=== PATIENT | female | born 1955 | race Caucasian/White ===

== ENCOUNTER → 2019-11-18 11:22 | Outpatient (BNVA) | payer MEDICARE, BC, SELFPAY | PROVIDERS: PCP Pediatrics; Visit Provider Urology | DX: Z76.89 Persons encountering health services in other specified circumstances (principal) | CPT/HCPCS: 99212 ==

== ENCOUNTER 2020-06-20 13:36 | Outpatient (REF) | payer MEDICARE, BC, SELFPAY ==
[2020-06-20 14:19] LABS: Glucose Urine UA NEG (NEG); Leukocyte Esterase Urine NEG (NEG); Nitrite Urine NEG (NEG); Urine Blood 2+ (NEG); Urine Ketones 5 MG/DL (NEG); Urine Protein NEG (NEG-TRACE)
[2020-06-20 14:21] LABS: Appearance Urine CLEAR; Color Urine YELLOW
[2020-06-20 14:37] LABS: Bacteria Urine TRACE /LPF; Mucus Urine TRACE /LPF; Squamous Epithelial Cell Urine 2+ /LPF
== END 2020-06-20 13:37 | disposition home or self-care (01) ==
LOC: HO.LAB 13:36
PROVIDERS: PCP Internal Medicine; Visit Provider Urology
DX: N39.0 Urinary tract infection, site not specified (principal)
CPT/HCPCS: 81001; 87086

== ENCOUNTER → 2020-12-07 10:30 | Outpatient (BNVA) | payer MEDICARE, BC, SELFPAY | PROVIDERS: PCP Internal Medicine; Visit Provider Urology | DX: N95.2 Postmenopausal atrophic vaginitis (principal); N39.0 Urinary tract infection, site not specified; N32.81 Overactive bladder | CPT/HCPCS: 51798; 99212 ==

== ENCOUNTER → 2022-07-09 09:00 | Outpatient (BNVA) | payer MEDICARE, BC, SELFPAY | PROVIDERS: PCP Internal Medicine; Visit Provider Urology | DX: N32.81 Overactive bladder (principal); N39.0 Urinary tract infection, site not specified; N95.2 Postmenopausal atrophic vaginitis | CPT/HCPCS: 51798; 99212 ==

== ENCOUNTER 2022-07-16 14:37 | Outpatient (REF) | payer MEDICARE, BC, SELFPAY ==
[2022-07-16 17:37] LABS: Appearance Urine Cloudy; Color Urine Yellow; Glucose Urine UA Negative (Negative); Leukocyte Esterase Urine Moderate (2+) (Negative); Nitrite Urine Negative (Negative); PH 5.5 (5.0-9.0); UMIC TRIGGER UA YES; Urine Blood Small (1+) (Negative); Urine Ketones Negative (Negative); Urine Protein 30 (1+) mg/dL (Neg-Trace)
[2022-07-16 17:42] LABS: Bacteria Urine None Seen (None Seen); Hyaline Casts Urine 0-2 /LPF (0-2); RBC Urine >20 /HPF (0-2); Squamous Epithelial Cell Urine 0-2 /HPF (0-2); WBC Urine >50 /HPF (0-5)
== END 2022-07-16 14:38 | disposition home or self-care (01) ==
LOC: HO.LAB 14:37
PROVIDERS: PCP Internal Medicine; Visit Provider Urology
DX: N39.0 Urinary tract infection, site not specified (principal)
CPT/HCPCS: 81001; 87086

== ENCOUNTER 2023-01-08 08:32 | Outpatient (AMB) | payer MEDICARE, BC, SELFPAY ==
--- NOTE | 2023-01-08 08:32 | A.OFFVIS_ITS ---
Intake Intake Visit Reasons: 6m follow up Intake Note: Patient is present for 6 month follow-up Urology Med: Estradiol, ( Patient states she has not been on Solifenacin in a while) Antibiotic Allergy: Sulfa Blood Thinner: Aspirin PVR: 0ml Certified Nurse Midwife Required: No Accompanied by: Self / Same As Patient Allergies Sulfa (Sulfonamide Antibiotics) Allergy (Unknown, Verified 01/08/23 08:35) Unknown Medication List - Last Reconciled 01/08/23 by Haider Diamond MD amantadine HCl 100 mg PO BID aspirin (Adult Low Dose Aspirin) 81 mg PO DAILY atenolol 25 mg PO DAILY budesonide ER 3 mg PO DAILY diclofenac sodium 75 mg PO BID estradiol 0.01%(0.1mg/gram) pea sized amount periurethral 2 times a week; estradiol 0.01%(0.1mg/gram) pea-sized to urethra 2 times a week; 30 days fosinopril-hydrochlorothiazide 20-12.5 mg 1 tab PO DAILY levofloxacin 500 mg PO DAILY 5 days simvastatin 40 mg PO BEDTIME sod picosulf-mag ox-citric ac 10 mg-3.5 gram- 12 gram/160 mL 5 mL PO BID solifenacin 10 mg PO DAILY 90 days terazosin 1 mg PO BEDTIME 30 days HPI HPI Comments History of Present Illness Details Ms Barker is a very pleasant female. She is a patient of Dr Villavicencio. She is seen for the following urologic conditions. - recurring UTI - urinary urgency Not using topical estradiol as frequently as she should Also with nocturia x4 Trial terazosin Discussed variable bowel habits Also with the tingling bilateral in feet suggestive of spinal stenosis. Recommend wool socks. She would like renal function checked issue any has 1 kidney Two month follow-up Trial terazosin, renal ultrasound, baseline labs Urinary Tract Infection: urine negative today They present for recurrent UTI's - 4 in past 6 months (2015) - When she uses the Estrace cream the frequency declines.. The first infection began 2015. Symptoms have included dyuria No urgency Yes frequency Yes Severity of the symptom(s) that is moderate. Therapy has included symptomatic use of antibiotics 01/27 suppression with cipro 250mg. Prior cultures have shown E. coli ampicillin resistant 10/26. Recent testing included an ultrasound 11/25 , no abnormality. Relevant medical history diabetes No constipation Yes Irritable bowel and has improved been on Weight Watchers diet incomplete bladder emptying No renal stones No genitourinary surgery No association of infections with intercourse No history of vesicoureteral reflux No Therapeutic plan will include topical estrogen - encouraged use of probiotics PFSH Medical History Diverticulitis HTN (hypertension) Irritable bowel Surgical History History of left knee replacement History of colonoscopy Review of Systems Const Denies chills and Denies fever(s) Card Reports no additional complaints and Denies syncope Resp Denies cough GI Denies abdominal pain and Denies heartburn Reports as per HPI and Denies change in libido Neuro Denies syncope Psych Denies change in libido Endo Denies change in libido Physical Exam Const General: cooperative, healthy appearing, comfortable and no acute distress Orientation/consciousness: patient oriented x3 HEENT Face and sinus: Yes normal facial exam Mouth: moist mucous membranes Neck Neck: Yes normal visual inspection, Yes full ROM and Yes trachea midline Chest Chest palpation & inspection: normal inspection of the chest Resp Effort & Inspection: normal respiratory effort, able to speak in complete sentences and no respiratory distress GI Inspection: Yes normal to inspection Back/Spine/Pelvis Cervical Spine: normal cervical lordosis Thoracic/Lumbar Spine: thoracic and lumbar spine normal to inspection Skin General skin exam: no rashes or lesions noted Neuro General: patient oriented x3, gait normal, tone normal and moves all extremities Extrem General: Yes normal to inspection and Yes capillary refill normal Assessment & Plan Assessment & Plan (1) Recurrent UTI: Code(s): N39.0 - Urinary tract infection, site not specified (2) Overactive bladder: Code(s): N32.81 - Overactive bladder Plan Two month follow-up labs, imaging, telephone Orders: Orders Urine Culture Today N39.0 - Urinary tract infection, site not specified Blood Urea Nitrogen Today N39.0 - Urinary tract infection, site not specified, R39.15 - Urgency of urination US renal BI Today N20.0 - Calculus of kidney, N39.0 - Urinary tract infection, site not specified Creatinine Today N39.0 - Urinary tract infection, site not specified, R39.15 - Urgency of urination Medications: New terazosin 1 mg PO BEDTIME 30 caps 1RF 30 days N39.0 - Urinary tract infection, site not specified, R39.12 - Poor urinary stream Patient Instructions: Imaging studies, laboratory and physical exam results were discussed and reviewed in detail. No major barriers to patient understanding were identified. An opportunity to ask questions regarding the treatment plan was provided. All questions were answered. The patient expressed understanding and agreement with the above treatment plan. The patient is aware they should contact our office by phone for worsening of their current condition or the appearance of new urologic symptoms. Compliance is encouraged with any medications and followup testing that is ordered. It is a privilege to participate in the urologic care of your patient. If you have any questions or concerns regarding treatment for the above conditions, or other urologic issues, please do not hesitate to contact me. The office telephone contact is [phone]. This note is constructed using voice recognition software. While every effort has been made to ensure accuracy hop separator errors may have been included. Yours sincerely, Dr Haider Diamond MD, RODRIGUEZ [facility] - Urology Providers of Expert, Compassionate Care for the Genitourinary System Coding Level of Care Code Est Pt Level 4 (64804) Diagnoses Recurrent UTI N39.0 Overactive bladder N32.81
== END 2023-01-08 08:56 | disposition home or self-care (01) ==
LOC: HO.HUSH 08:32
PROVIDERS: PCP Internal Medicine; Visit Provider Urology
DX: N39.0 Urinary tract infection, site not specified (principal); N32.81 Overactive bladder
CPT/HCPCS: 99214

== ENCOUNTER 2023-01-08 08:32 | Outpatient (REF) | payer MEDICARE, BC, SELFPAY | END 2023-01-08 08:33 | disposition home or self-care (01) | LOC: HO.LAB 08:32 | PROVIDERS: PCP Internal Medicine; Visit Provider Urology | DX: N39.0 Urinary tract infection, site not specified (principal); N32.81 Overactive bladder | CPT/HCPCS: 36415; 82565; 84520; 87086; 99212 ==

== ENCOUNTER 2023-01-08 08:58 | Outpatient (REF) | payer MEDICARE, BC, SELFPAY ==
[2023-01-08 11:05] LABS: Blood Urea Nitrogen 12 mg/dL (9-16); Estimated Glomerular Filt Rate 56
== END 2023-01-08 08:59 | disposition home or self-care (01) ==
LOC: HO.10HDL 08:58
PROVIDERS: Visit Provider Urology
DX: Z13.89 Encounter for screening for other disorder (principal)
CPT/HCPCS: 36415; 82565; 84520

== ENCOUNTER 2023-04-04 12:14 | Outpatient (REF) | payer MEDICARE, BC, SELFPAY ==
--- NOTE | ~2023-04-04 | US_ITS ---
EXAMINATION: US RETROPERITONEAL LIMITED (RENAL ONLY) CLINICAL INFORMATION: Calculus of kidney. COMPARISON: None available. TECHNIQUE: Real-time imaging of the solitary left kidney. Limited visualization due to bowel gas. FINDINGS: RIGHT KIDNEY: Surgically absent. LEFT KIDNEY: 13.7 x 6.4 x 5.0 cm (SAG x AP x TRV). No hydronephrosis. No renal calculi. Renal cortical thickness is normal. Limited visualization. US/US renal BI IMPRESSION: No hydronephrosis. No renal calculi. Limited visualization.
== END 2023-04-04 12:15 | disposition home or self-care (01) ==
LOC: HO.US 12:14
PROVIDERS: PCP Internal Medicine; Visit Provider Urology
DX: N20.0 Calculus of kidney (principal); N39.0 Urinary tract infection, site not specified
CPT/HCPCS: 76775

== ENCOUNTER 2023-04-29 09:38 | Outpatient (AMB) | payer MEDICARE, BC, SELFPAY ==
--- NOTE | 2023-04-29 09:40 | MHC.OFFVIS ---
Intake Intake Visit Reasons: 2M US/Med Review(Terazosin)set Intake Note: Patient is Present for Telephone Follow Up Urology Med: Terazosin, Solifenacin Estradiol Antibiotic Allergy:Sulfa Blood Thinner: Aspirin Allergies Sulfa (Sulfonamide Antibiotics) Allergy (Unknown, Verified 01/08/23 08:35) Unknown HPI HPI Comments History of Present Illness Details Ms Barker is a very pleasant female. She is a patient of Dr Villavicencio. She is seen for the following urologic conditions. - recurring UTI - urinary urgency - renal cancer - right nephrectomy Telemedicine Evaluation 15 min Consultation [employer] Video attempted Follow-up Trial terazosin Minimal effect Discussed imaging and ultrasound results that show normal kidney function Discussed trial Myrbetriq for her overactive bladder Baseline nocturia x4 Had encouraged topical estradiol Creatinine 1.0 Renal ultrasound left normal no stones Discussed variable bowel habits Also with the tingling bilateral in feet suggestive of spinal stenosis. Recommend Edouard wool socks. Urinary Tract Infection: urine negative today They present for recurrent UTI's - 4 in past 6 months (2015) - When she uses the Estrace cream the frequency declines.. The first infection began 2015. Symptoms have included dyuria No urgency Yes frequency Yes Severity of the symptom(s) that is moderate. Therapy has included symptomatic use of antibiotics 01/27 suppression with cipro 250mg. Prior cultures have shown E. coli ampicillin resistant 10/26. Recent testing included an ultrasound 11/25 , no abnormality. Relevant medical history diabetes No constipation Yes Irritable bowel and has improved been on Weight Watchers diet incomplete bladder emptying No renal stones No genitourinary surgery No association of infections with intercourse No history of vesicoureteral reflux No Therapeutic plan will include topical estrogen - encouraged use of probiotics [facility] Medical History Diverticulitis HTN (hypertension) Irritable bowel Surgical History History of left knee replacement History of colonoscopy Review of Systems Const All systems reviewed & are unremarkable except as noted in HPI and below Reports no additional complaints Resp Reports no additional complaints GI Reports no additional complaints Reports as per HPI Musc Reports no additional complaints Physical Exam Telemedicine evaluation Appropriate responses Regular breathing rate and rhythm HEENT Head: Yes normal to inspection Ears: hearing grossly normal bilaterally Eyes General: appearance normal, both eyes and all related structures Neck Neck: Yes normal visual inspection Chest Chest palpation & inspection: normal inspection of the chest Resp Effort & Inspection: normal respiratory effort and able to speak in complete sentences Assessment & Plan Assessment & Plan (1) Vaginal atrophy: Code(s): N95.2 - Postmenopausal atrophic vaginitis (2) Recurrent UTI: Code(s): N39.0 - Urinary tract infection, site not specified (3) Overactive bladder: Code(s): N32.81 - Overactive bladder Plan Trial Myrbetriq Two month follow-up tele Medications: New Myrbetriq ER (mirabegron) 25 mg PO DAILY 30 days 30 tabs 1RF NS N32.81 - Overactive bladder Patient Instructions: Imaging studies, laboratory and physical exam results were discussed and reviewed in detail. No major barriers to patient understanding were identified. An opportunity to ask questions regarding the treatment plan was provided. All questions were answered. The patient expressed understanding and agreement with the above treatment plan. The patient is aware they should contact our office by phone for worsening of their current condition or the appearance of new urologic symptoms. Compliance is encouraged with any medications and followup testing that is ordered. It is a privilege to participate in the urologic care of your patient. If you have any questions or concerns regarding treatment for the above conditions, or other urologic issues, please do not hesitate to contact me. The office telephone contact is [phone]. This note is constructed using voice recognition software. While every effort has been made to ensure accuracy scientific process operator errors may have been included. Yours sincerely, Dr Haider Diamond MD, RODRIGUEZ [facility] [place] - Urology Providers of Expert, Compassionate Care for the Genitourinary System Telehealth Telehealth Location of provider rendering services: practice address Location of patient: address on file Patient Identification confirmed using: Name, : Yes Telehealth method: video Patient verbally consented to treatment: Yes Patient verbally consented to billing insurance company: Yes Patient informed of any privacy concerns related to visit: Yes Coding Level of Care Code Tele Est Pt Level 4 (47667) Diagnoses Vaginal atrophy N95.2 Recurrent UTI N39.0 Overactive bladder N32.81
== END 2023-04-29 10:05 | disposition home or self-care (01) ==
LOC: HO.HUSH 09:38
PROVIDERS: PCP Internal Medicine; Visit Provider Urology
DX: N95.2 Postmenopausal atrophic vaginitis (principal); N39.0 Urinary tract infection, site not specified; N32.81 Overactive bladder
CPT/HCPCS: 99214

== ENCOUNTER → 2023-04-29 09:38 | Outpatient (BNVA) | payer MEDICARE, BC, SELFPAY | PROVIDERS: PCP Internal Medicine; Visit Provider Urology ==

== ENCOUNTER 2023-07-01 10:04 | Outpatient (AMB) | payer MEDICARE, BC, SELFPAY ==
--- NOTE | 2023-07-01 10:05 | MHC.OFFVIS ---
Intake Visit Reasons: 2m follow up Intake Note: Patient is Present for Telephone Follow Up For med review Urology Med: Solifenacin, Myrbetriq Antibiotic Allergy:Sulfa antibiotics Blood Thinner: Aspirin Patient is requesting to be back on solifenacin, States both myrbetriq and solifenacin is giving the same response. She states she rather pay less for solfienacin than myrbetriq No longer taking Terazosin, Myrbetriq Allergies Sulfa (Sulfonamide Antibiotics) Allergy (Unknown, Verified 07/01/23 10:07) Unknown Medication List - Last Reconciled 07/01/23 by Haider Diamond MD amantadine HCl 100 mg PO BID aspirin (Adult Low Dose Aspirin) 81 mg PO DAILY atenolol 25 mg PO DAILY budesonide DR-ER 3 mg PO DAILY diclofenac sodium 75 mg PO BID estradiol 0.01%(0.1mg/gram) pea sized amount periurethral 2 times a week; estradiol 0.01%(0.1mg/gram) pea-sized to urethra 2 times a week; 30 days fosinopril-hydrochlorothiazide 20-12.5 mg 1 tab PO DAILY levofloxacin 500 mg PO DAILY 5 days simvastatin 40 mg PO BEDTIME sod picosulf-mag ox-citric ac 10 mg-3.5 gram- 12 gram/160 mL 5 mL PO BID solifenacin 10 mg PO DAILY 90 days terazosin 1 mg PO BEDTIME 30 days HPI Comments Details: Ms Barker is a very pleasant female. She is a patient of Dr Villavicencio. She is seen for the following urologic conditions. - recurring UTI - urinary urgency - renal cancer - right nephrectomy Telemedicine Evaluation 15 min Consultation [email or web address] Follow-up Trial Myrbetriq Similar impact as solifenacin Would rather remain on solifenacin as is much cheaper Discussed options for InterStim Will provide information when we see her in 6 months Baseline nocturia x4 Had encouraged topical estradiol Creatinine 1.0 Renal ultrasound left normal no stones Discussed variable bowel habits Also with the tingling bilateral in feet suggestive of spinal stenosis. Recommend Edouard wool socks. Urinary Tract Infection: urine negative today They present for recurrent UTI's - 4 in past 6 months (2015) - When she uses the Estrace cream the frequency declines.. The first infection began 2015. Symptoms have included dyuria No urgency Yes frequency Yes Severity of the symptom(s) that is moderate. Therapy has included symptomatic use of antibiotics 01/27 suppression with cipro 250mg. Prior cultures have shown E. coli ampicillin resistant 10/26. Recent testing included an ultrasound 11/25 , no abnormality. Relevant medical history diabetes No constipation Yes Irritable bowel and has improved been on Weight Watchers diet incomplete bladder emptying No renal stones No genitourinary surgery No association of infections with intercourse No history of vesicoureteral reflux No Therapeutic plan will include topical estrogen - encouraged use of probiotics PFSH Medical History Diverticulitis HTN (hypertension) Irritable bowel Surgical History History of left knee replacement History of colonoscopy Review of Systems Const All systems reviewed & are unremarkable except as noted in HPI and below Reports no additional complaints Resp Reports no additional complaints GI Reports no additional complaints Reports as per HPI Musc Reports no additional complaints Physical Exam Telemedicine evaluation Appropriate responses Regular breathing rate and rhythm HEENT Head: Yes normal to inspection Ears: hearing grossly normal bilaterally Eyes General: appearance normal, both eyes and all related structures Neck Neck: Yes normal visual inspection Chest Chest palpation & inspection: normal inspection of the chest Resp Effort & Inspection: normal respiratory effort and able to speak in complete sentences Telehealth Telehealth Location of provider rendering services: practice address Location of patient: address on file Patient Identification confirmed using: Name, : Yes Telehealth method: video Patient verbally consented to treatment: Yes Patient verbally consented to billing insurance company: Yes Patient informed of any privacy concerns related to visit: Yes Assessment & Plan Assessment & Plan (1) Overactive bladder: Code(s): N32.81 - Overactive bladder Category: Medical (2) Recurrent UTI: Code(s): N39.0 - Urinary tract infection, site not specified Category: Medical Plan Solifenacin Consider InterStim with possible urodynamics Medications: Refilled solifenacin 10 mg PO DAILY 90 days 90 tabs 1RF N32.81 - Overactive bladder Discontinued Myrbetriq ER (mirabegron) Discontinued Reason: Patient Completed Course 25 mg PO DAILY 30 days 30 tabs 1RF NS N32.81 - Overactive bladder Patient Instructions: Imaging studies, laboratory and physical exam results were discussed and reviewed in detail. No major barriers to patient understanding were identified. An opportunity to ask questions regarding the treatment plan was provided. All questions were answered. The patient expressed understanding and agreement with the above treatment plan. The patient is aware they should contact our office by phone for worsening of their current condition or the appearance of new urologic symptoms. Compliance is encouraged with any medications and followup testing that is ordered. It is a privilege to participate in the urologic care of your patient. If you have any questions or concerns regarding treatment for the above conditions, or other urologic issues, please do not hesitate to contact me. The office telephone contact is [phone]. This note is constructed using voice recognition software. While every effort has been made to ensure accuracy mobile home technician errors may have been included. Yours sincerely, Dr Haider Diamond MD, RODRIGUEZ [facility] - Urology Providers of Expert, Compassionate Care for the Genitourinary System Coding Level of Care Code Tele Est Pt Level 3 (32747) Diagnoses Overactive bladder N32.81 Recurrent UTI N39.0
== END 2023-07-01 10:42 | disposition home or self-care (01) ==
LOC: HO.HUSH 10:04
PROVIDERS: PCP Internal Medicine; Visit Provider Urology
DX: N32.81 Overactive bladder (principal); N39.0 Urinary tract infection, site not specified
CPT/HCPCS: 99213

== ENCOUNTER → 2023-07-01 10:04 | Outpatient (BNVA) | payer MEDICARE, BC, SELFPAY | PROVIDERS: PCP Internal Medicine; Visit Provider Urology ==

== ENCOUNTER 2024-02-06 14:30 | Outpatient (REF) | payer MEDICARE, BC, SELFPAY ==
[2024-02-06 14:57] LABS: Appearance Urine Cloudy; Color Urine Yellow; Glucose Urine UA Negative (Negative); Leukocyte Esterase Urine Large (3+) (Negative); Nitrite Urine Negative (Negative); PH 5.5 (5.0-9.0); UMIC TRIGGER UA YES; Urine Blood Moderate (2+) (Negative); Urine Ketones Negative (Negative); Urine Protein 30 (1+) mg/dL (Neg-Trace)
[2024-02-06 15:02] LABS: Bacteria Urine None Seen (None Seen); Hyaline Casts Urine 0-2 /LPF (0-2); RBC Urine >20 /HPF (0-2); Squamous Epithelial Cell Urine 0-2 /HPF (0-2); WBC Urine >50 /HPF (0-5)
== END 2024-02-06 14:31 | disposition home or self-care (01) ==
LOC: HO.LAB 14:30
PROVIDERS: PCP Internal Medicine; Visit Provider Urology
DX: N39.0 Urinary tract infection, site not specified (principal); B96.20 Unspecified Escherichia coli [E. coli] as the cause of diseases classified elsewhere
CPT/HCPCS: 81001; 87086; 87088; 87186

== ENCOUNTER 2024-02-19 08:52 | Outpatient (REF) | payer MEDICARE, BC, SELFPAY ==
[2024-02-19 10:05] LABS: Appearance Urine Cloudy; Color Urine Yellow; Glucose Urine UA Negative (Negative); Leukocyte Esterase Urine Trace (Negative); Nitrite Urine Negative (Negative); Specific Gravity - Urine >= 1.030 (1.005-1.025); UMIC TRIGGER UA YES; Urine Blood Large (3+) (Negative); Urine Ketones Trace mg/dL (Negative); Urine Protein 100 (2+) mg/dL (Neg-Trace)
[2024-02-19 10:18] LABS: Bacteria Urine 2+ (None Seen)
== END 2024-02-19 08:53 | disposition home or self-care (01) ==
LOC: HO.LAB 08:52
PROVIDERS: PCP Internal Medicine; Visit Provider Urology
DX: N39.0 Urinary tract infection, site not specified (principal)
CPT/HCPCS: 81001; 87086

== ENCOUNTER 2024-03-04 10:10 | Outpatient (AMB) | payer MEDICARE, BC, SELFPAY ==
--- NOTE | 2024-03-04 10:16 | MHC.OFFVIS ---
Intake Visit Reasons: 6M PVR/Disciss Urodynamic/interstim Intake Note: Patient is present for 6M PVR/DISCUSS URODYNAMICS/INTERSTIM Urology Medication:TERAZOSIN,MACROBID,SOLIFENACIN,EASRADIOL Antibiotic Allergy:SULFA Blood Thinner:ASPIRIN TODAY'S PVR: 0ML'S Legal Coordinator Required: No Allergies Sulfa (Sulfonamide Antibiotics) Allergy (Unknown, Verified 03/04/24 10:17) Unknown HPI Comments Details: Ms Barker is a very pleasant female. She is a patient of Dr Villavicencio. She is seen for the following urologic conditions. - recurring UTI - urinary urgency - renal cancer - right nephrectomy Continues with solifenacin Provided information regarding bladder stimulation Baseline nocturia x4 Had encouraged topical estradiol Creatinine 1.0 Renal ultrasound left normal no stones Discussed variable bowel habits Also with the tingling bilateral in feet suggestive of spinal stenosis. Recommend Edouard wool socks. Urinary Tract Infection: urine negative today They present for recurrent UTI's - 4 in past 6 months (2015) - When she uses the Estrace cream the frequency declines.. The first infection began 2015. Symptoms have included dyuria No urgency Yes frequency Yes Severity of the symptom(s) that is moderate. Therapy has included symptomatic use of antibiotics 01/27 suppression with cipro 250mg. Prior cultures have shown E. coli ampicillin resistant 10/26. Recent testing included an ultrasound 11/25 , no abnormality. Relevant medical history diabetes No constipation Yes Irritable bowel and has improved been on Weight Watchers diet incomplete bladder emptying No renal stones No genitourinary surgery No association of infections with intercourse No history of vesicoureteral reflux No Therapeutic plan will include topical estrogen - encouraged use of probiotics PFSH Medical History Diverticulitis HTN (hypertension) Irritable bowel Surgical History History of left knee replacement History of colonoscopy Office Procedures Post Void Residual Post Residual Void Post Void Residual (PVR): 0 [id number] Void Residual by ultrasound Results AMB Urinalysis, Automated UA Leukoctes 70 Abdelrahman/uL Last Edit by JOHN Seymour on 03/04/24 10:41 UA Nitrite Negative Last Edit by JOHN Seymour on 03/04/24 10:41 UA Urobilinogen 0.2 mg/dL [facility] on 03/04/24 10:41 UA Protein 15 mg/dL Last Edit [facility] on 03/04/[facility] 10:41 UA pH 6.0 Last Edit by Vielka Mi, [facility] on 03/04/24 10:41 UA Blood 200 Obed/uL Last Edit by Vielka Mi [facility] on 03/04/24 10:41 UA Specific Kyle 1.015 Last Edit by Vielka Mi [facility] on 03/04/24 10:41 UA Ketone Negative Last Edit by Vielka Mi [facility] on 03/04/24 10:41 UA Bilirubin 0 mg/dL Last Edit by Vielka Mi [facility] on 03/04/24 10:41 UA Glucose 0 mg/dL Last Edit by Vielka Mi [facility] on 03/04/24 10:41 Assessment & Plan Assessment & Plan Orders: Orders AMB Urinalysis Automated Today Z13.9 - Encounter for screening, unspecified Coding CPT Codes Post Residual Void - PVR CPT Code: 06174-[id number] Void Residual by ultrasound ([id number])
== END 2024-03-04 11:14 | disposition home or self-care (01) ==
PROVIDERS: PCP Internal Medicine; Visit Provider Urology
DX: Z13.9 Encounter for screening, unspecified (principal)

== ENCOUNTER → 2024-03-04 10:10 | Outpatient (BNVA) | payer MEDICARE, BC, SELFPAY | PROVIDERS: PCP Internal Medicine; Visit Provider Urology | DX: N39.0 Urinary tract infection, site not specified (principal); N32.81 Overactive bladder | CPT/HCPCS: 51798; 81003; 99212 ==

== ENCOUNTER 2024-03-12 13:44 | Outpatient (REF) | payer MEDICARE, BC, SELFPAY ==
--- OUTSIDE RECORDS SUMMARY | 2024-03-12 13:47 | XMS_ITS | Clinical Summary ---
[facility] Organization [facility] it Address [address] [place] [address] Care Team Providers Care Payroll Associate Name Role Phone Papo Villavicencio MD Primary Care Provider Medications Medication Sig Dispensed Refills Start Date End Date Status hydrocortisone (ANUSOL-HC) 2.5 % rectal creamIndications:Hem orrhoids, unspecified hemorrhoid type Insert into the rectum 2 (two) times a day if needed for hemorrhoids (for rectal discomfort) for up to 14 days. Apply externally to rectum as needed for rectal discomfort 30 g 3 01/05/2024 Active Encounters Date Type Department Care Team Description 01/05/2024 Telephone Gastroenterology - [address] [place] [address] Iain Boone MD Hemorrhoids (Pt states having a difficult time w/hemorrhoids, Preparation H not working, pt would like to know if something can be called in for this) from Last 3 Months Surgical History Surgery Date Site/Laterality Comments VENTRAL HERNIA REPAIR 04/12/2005, 07/20/13 PROCEDURE: HISTORICAL VTRL WALL HERNIA RE; COMMENT: multiple OVARIAN CYST REMOVAL PROCEDURE: [place] OVARIAN CYSTECTOMY UNI/BI OTHER SURGICAL HISTORY PROCEDURE: AR MYOMECTOMY 1-4 MYOMAS 250 GM/< VAGINAL APPR NEPHRECTOMY Right PROCEDURE: HISTORICAL NEPHRECTOMY TOTAL KNEE ARTHROPLASTY Bilateral PROCEDURE: HISTORICAL TOTAL KNEE REPLACE COLONOSCOPY PROCEDURE: HISTORICAL COLONOSCOPY ABDOMINAL SURGERY 09/15/2017 PROCEDURE: [place] UNLISTED PROCEDURE ABDOMEN PERITONEUM & OMENTUM; COMMENT: exploratory laparotomy, repair of recurrent low midline incisional herniawith Prolene mesh, partial removal of old mesh Medical History Medical History Date Comments Allergic rhinitis 08/26/2017 DX:Allergic rh initis DJD (degenerative joint dise ase), multiple sites 08/26/2017 DX:DJD (degenerative joint d isease), multiple sites H/O unilateral nephrectomy 08/26/2017 DX:H/ O unilateral nephrectomy; COMMENT: Trauma related, Right nephrectomy Diverticulitis 08/26/2017 DX:Diverticuliti s History of total bilateral k nee replacement 08/26/2017 DX:History of total bilatera l knee replacement Hyperlipidemia 08/26/2017 DX:Hyperlipidemi a Hypertension 08/26/2017 DX:Hypertension Irritable bowel syndrome (IBS) 08/26/2017 D X:Irritable bowel syndrome (IBS) Morbid obesity with BMI of 4 0.0-44.9, adult (CMS/HCC) 08/26/2017 DX:Morbid obesity with BMI o f 40.0-44.9, adult ([facility]) Psoriasis 08/26/2017 DX:Psoriasis Recurrent incisional hernia 07/15/2017 DX:R ecurrent incisional hernia Recurrent UTI (urinary tract infection) 07/15/2017 DX:Recurrent UTI (urinary tract infection) 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 Urgency of urination 08/26/2017 DX:Urgency of urination Family History Medical History Relation Name Comments Leukemia Father Dementia Mother Relation Name Status Comments Father Mother Social History Tobacco Use Types Packs/Day Years Used Date Smoking Tobacco: Never Smokeless Tobacco: Never Alcohol Use Standard Drinks/Week Comments No 0 (1 standard drink = 0.6 oz pur e alcohol) Sex and Gender Information Value Date Recorded Sex Assigned at Not on file Gender Identity Not on file Sexual Orientation Not on file Obstetrics History Plan of Treatment Health Maintenance Due Date Last Done Comments Breast Cancer Screening 1955 COVID-19 Vaccine (#1) 07/31/1959 DTaP,Tdap,and Td Vaccines (1 - Tdap) 1973 Zoster Vaccines (1 of 2) 2004 Pneumococcal Vaccine: 65+ Ye ars (1 of 1 - PCV) 07/31/2019 Cholesterol Screening (Lipid Panel) 01/09/2022 Colorectal Cancer Screening: Colonoscopy 01/09/2022 Depression Screening 01/09/2022 Falls Risk Assessment 01/09/2022 Hepatitis C Screening 01/09/2022 Osteoporosis Screening (Bone Density Screening) 01/09/2022 Social Influencers of Health Screening 01/09/2022 Hypertension/CHF/CAD Annual BMP Blood Test 01/26/2022 Influenza Vaccine (#1) 2023 RSV Immunization Patients 60 + Years Old (1 - 1-dose 75+ series) 2029 HIB Vaccines Aged Out No longer eligi ble based on patient's age to complete this topic HPV Vaccines Aged Out No longer eligi ble based on patient's age to complete this topic Hepatitis A Vaccines Aged Out No long er eligible based on patient's age to complete this topic Hepatitis B Vaccines Aged Out No long er eligible based on patient's age to complete this topic IPV Vaccines Aged Out No longer eligi ble based on patient's age to complete this topic MMR Vaccines Aged Out No longer eligi ble based on patient's age to complete this topic Meningococcal ACWY Vaccine Aged Out N o longer eligible based on patient's age to complete this topic RSV Immunization Patients Un deshaun 20 months Aged Out No longer eligible b ased on patient's age to complete this topic Varicella Vaccines Aged Out No longer eligible based on patient's age to complete this topic Care Teams Payroll Associate Relationship Specialty Start Date End Date Papo Villavicencio MD [address] [facility] [address] [place], [place] PCP - General Internal Medicine 02/10/11
[2024-03-12 14:54] LABS: Appearance Urine Turbid; Color Urine Dark Yellow; Glucose Urine UA Negative (Negative); Leukocyte Esterase Urine Moderate (2+) (Negative); Nitrite Urine Negative (Negative); Specific Gravity - Urine 1.025 (1.005-1.025); UMIC TRIGGER UA YES; Urine Blood Large (3+) (Negative); Urine Ketones Trace mg/dL (Negative); Urine Protein 300 (3+) mg/dL (Neg-Trace)
[2024-03-12 15:25] LABS: Bacteria Urine 4+ (None Seen); RBC Urine >20 /HPF (0-2); WBC Urine >50 /HPF (0-5)
== END 2024-03-12 13:45 | disposition home or self-care (01) ==
LOC: HO.LAB 13:44
PROVIDERS: PCP Internal Medicine; Visit Provider Urology
DX: N39.0 Urinary tract infection, site not specified (principal)
CPT/HCPCS: 81001; 87086

== ENCOUNTER 2024-04-12 14:09 | Outpatient (REF) | payer MEDICARE, BC, SELFPAY ==
[2024-04-12 14:35] LABS: Appearance Urine Cloudy; Color Urine Yellow; Glucose Urine UA Negative (Negative); Leukocyte Esterase Urine Large (3+) (Negative); Nitrite Urine Negative (Negative); Specific Gravity - Urine 1.015 (1.005-1.025); UMIC TRIGGER UA YES; Urine Blood Small (1+) (Negative); Urine Ketones Negative (Negative); Urine Protein Negative (Neg-Trace)
[2024-04-12 14:39] LABS: Bacteria Urine 1+ (None Seen); Hyaline Casts Urine 0-2 /LPF (0-2); WBC Urine >50 /HPF (0-5)
--- OUTSIDE RECORDS SUMMARY | 2024-04-12 16:58 | XMS_ITS | Clinical Summary ---
[facility] [address] [place] [address] Care Team Providers Care Hide Selector Name Role Phone Papo Villavicencio MD Primary Care Provider [phone] Medications hydrocortisone (ANUSOL-HC) 2.5 % rectal creamIndications :Hemorrhoids, unspecified hemorrhoid type Insert into the rectum 2 (two) times a day if needed for hemorrhoids (for rectal discomfort) for up to 14 days. Apply externally to rectum as needed for rectal discomfort 30 g [address] (Entocort EC) 3 mg 24 hr capsuleIndicatio ns:Microscopic colitis, unspecified microscopic colitis type Take 3 capsules (9 mg total) by mouth 1 (one) time each day in the morning. 270 each 5 07/06/19 Active Encounters Date Type Department Care Team Description 04/06/2024 Telephone Gastroenterology - [address] [facility] [address] [place] [phone] Iain Boone MD Advice Only from Last 3 Months Surgical History Surgery Date Site/Laterality Comments VENTRAL HERNIA REPAIR 04/12/2005, 07/20/13 PROCEDURE: HISTORICAL VTRL WALL HERNIA RE; COMMENT: multiple OVARIAN CYST REMOVAL PROCEDURE: [place] OVARIAN CYSTECTOMY UNI/BI OTHER SURGICAL HISTORY PROCEDURE: [place] MYOMECTOMY 1-4 MYOMAS 250 GM/< VAGINAL APPR NEPHRECTOMY Right PROCEDURE: HISTORICAL NEPHRECTOMY TOTAL KNEE ARTHROPLASTY Bilateral PROCEDURE: HISTORICAL TOTAL KNEE REPLACE COLONOSCOPY PROCEDURE: HISTORICAL COLONOSCOPY ABDOMINAL SURGERY 09/15/2017 PROCEDURE: [place] UNLISTED PROCEDURE ABDOMEN PERITONEUM & OMENTUM; COMMENT: [...] obesity with BMI of 4 0.0-44.9, adult ([facility]/HCC) 08/26/2017 DX:Morbid obesity with BMI o f 40.0-44.9, adult ([facility]) Psoriasis 08/26/2017 DX:Psoriasis Recurrent incisional [...] drink = 0.6 oz pur e alcohol) Comments Unknown Sex and Gender Information Value Date Recorded Sex Assigned at Not on file Legal Sex Female 4:11 PM EST Gender Identity Not on file Sexual Orientation Not on file Obstetrics History Plan of Treatment Health Maintenance Due Date Last Done Comments Breast Cancer Screening 1954 COVID-19 Vaccine (#1) 07/31/1959 DTaP,Tdap,and Td Vaccines (1 - Tdap) 1973 Pneumococcal Vaccine: 50+ Ye ars (1 of 1 - PCV) 2004 Zoster Vaccines (1 of 2) 2004 Cholesterol Screening (Lipid Panel) 01/09/2022 Colorectal Cancer [...] patient's age to complete this topic Meningococcal B Vacine Aged Out No lo nger eligible based on patient's age to complete this topic RSV Immunization Patients Un deshanu 20 months Aged Out No longer eligible b ased on patient's age to complete this topic Varicella Vaccines Aged Out No longer eligible based on patient's age to complete this topic Care Teams Hide Selector Relationship Specialty Start Date End Date Papo Villavicencio MD [address] [facility] [address] [place], [place] PCP - General Internal Medicine 02/10/11
--- OUTSIDE RECORDS SUMMARY | 2024-04-12 16:58 | XMS_ITS | Encounter Summary ---
Author Organization [facility] Address [address] [place] [address] Care Team Providers Care Shell Coremaker Name Role Phone Papo Villavicencio MD Primary Care Provider Reason for Visit * Reason Onset Date Comments Advice Only 04/06/2024 Encounter Details Date Type Department Care Team (Late st Contact Info) Description 04/06/2024 Telephone Gastroenterology - [address] [facility] [address] [facility] [address] [place] [phone] Iain Boone MD [address] [facility] [facility] [address] [place] [address] Advice Only Social History Tobacco Use Types Packs/Day Years Used Date Smoking Tobacco: Never Smokeless Tobacco: Never Alcohol Use Standard Drinks/Week Comments No 0 (1 standard drink = 0.6 oz pur e alcohol) Comments Unknown Sex and Gender Information Value Date Recorded Sex Assigned at Not on file Legal Sex Female 4:11 PM EST Gender Identity Not on file Sexual Orientation Not on file documented as of this encounter Progress Notes * Marzena Zamora [place] - 04/06/2024 3:43 PM EST RX SENT TO PHARM FOR BUDESONIDE 3 MG 3 PO QD FOR 90 DAYS NO REFILLS -PT AWARE * Darshana Bello - 04/06/2024 3:08 PM EST Pt called about her medication DUDESONIDE. Usually gets 3 mo supply and only got one month. Insurance sent letter to pt for us to call pharmacy to confirm medication. Please advise. Takes 3 p.o. q.d. documented in this encounter Plan of Treatment Not on file documented as of this encounter Visit Diagnoses Not on filedocumented in this encounter Care Teams Shell Coremaker Relationship Specialty Start Date End Date Papo Villavicencio MD [address] [facility] [address] [place], [place] PCP - General Internal Medicine 02/10/11 documented as of this encounter
== END 2024-04-12 14:10 | disposition home or self-care (01) ==
LOC: HO.LAB 14:09
PROVIDERS: PCP Internal Medicine; Visit Provider Urology
DX: N39.0 Urinary tract infection, site not specified (principal); N32.81 Overactive bladder
CPT/HCPCS: 81001; 87086; 87088; 87186

== ENCOUNTER 2024-06-16 08:34 | Outpatient (REF) | payer MEDICARE, BC, SELFPAY ==
--- OUTSIDE RECORDS SUMMARY | 2024-06-16 08:52 | XMS_ITS | Clinical Summary ---
[facility] Address [address] [place] [address] Care Team Providers Care Safety Clothing And Equipment Developer Name Role Phone Papo Villavicencio MD Primary Care Provider Medications hydrocortisone (ANUSOL-HC) 2.5 % rectal creamIndications [...] 04/06/2024 Telephone Gastroenterology - [address] [facility] [address] [place] [phone] Iain Boone MD Advice Only from Last 3 Months Surgical History Surgery Date Site/Laterality Comments VENTRAL HERNIA REPAIR 04/12/2005, 07/20/13 PROCEDURE: HISTORICAL VTRL WALL HERNIA RE; COMMENT: multiple OVARIAN CYST REMOVAL PROCEDURE: [place] OVARIAN CYSTECTOMY UNI/BI OTHER SURGICAL HISTORY PROCEDURE: ND MYOMECTOMY 1-4 MYOMAS 250 GM/< VAGINAL APPR NEPHRECTOMY Right PROCEDURE: HISTORICAL NEPHRECTOMY TOTAL KNEE ARTHROPLASTY Bilateral PROCEDURE: HISTORICAL TOTAL KNEE REPLACE COLONOSCOPY PROCEDURE: HISTORICAL COLONOSCOPY ABDOMINAL SURGERY 09/15/2017 PROCEDURE: [place] UNLISTED PROCEDURE ABDOMEN PERITONEUM & OMENTUM; COMMENT: [...] obesity with BMI of 4 0.0-44.9, adult (CMS/HCC V24, CMS/HCC V28) 08/26/2017 DX:Morbid obesity wit h BMI of 40.0-44.9, adult ([facility]) Psoriasis 08/26/2017 DX:Psoriasis Recurrent incisional hernia 07/15/2017 [...] Last Done Comments Breast Cancer Screening 1955 Pneumococcal Vaccine: 50+ Years (2 of 2 - PCV) 10/12/2021 10/12/2020, 06/08/2014 Cholesterol Screening (Lipid Panel) 01/09/2022 Colorectal Cancer Screening: Colonoscopy 01/09/2022 Depression Screening 01/09/2022 Falls Risk Assessment 01/09/2022 Hepatitis C Screening 01/09/2022 Osteoporosis Screening (Bone Density Screening) 01/09/2022 Social Influencers of Health Screening 01/09/2022 Hypertension/CHF/CAD Annual BMP Blood Test 01/26/2022 COVID-19 Vaccine ( season) 2023 11/28/2022, 08/27/2021, 12/08/2020, Additional history exists Influenza Vaccine (Season Ended) 2024 10/21/2022, 11/27/2021, 12/01/2020, Additional history exists DTaP,Tdap,and Td Vaccines (2 - Td or Tdap) 11/16/2030 11/16/2020 Zoster Vaccines Completed 02/12/2021, 12/01/2020 RSV Immunization Adult Patients Completed 10/21/2022 HIB Vaccines Aged Out No longer eligi [...] age to complete this topic Meningococcal B Vaccine Aged Out No l onger eligible based on patient's age to complete this topic RSV Immunization Patients Under 20 months Aged Out No longer eligible based on patient's age to complete this topic Varicella Vaccines Aged Out No longer eligible based on patient's age to complete this topic Care Teams Safety Clothing And Equipment Developer Relationship Specialty Start Date End Date Papo Villavicencio MD [address] [facility] [address] [place], [place] PCP - General Internal Medicine 02/10/11
--- OUTSIDE RECORDS SUMMARY | 2024-06-16 08:53 | XMS_ITS | Data Portability ---
Author Organization [place] - [facility], Allergy Address [address] [place] [id number] Care Team Providers Care Process Control Technician Name Role Phone NADIA ROBERTS Primary Care Provider [phone] Assessment No assessment recorded. Plan of Treatment Reminders Order Date Submit Date Provider Last Modified By Organization Details Last Modified Time Details Appointments None record ed. Lab None record ed. Referral None record ed. Procedures None record ed. Surgeries None record ed. Imaging None record ed. Medication Orders None record ed. Patient TargetsNo targets recorded. 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 She had an MRI of her head in [address] of her sinuses in 2020 without any identifiable cause for this condition. I have suggested fluticasone nasal spray 2 sprays each nostril once daily and a trial of smell retraining. She can try to smell essential oils that contain Nelly, eucalyptus, peppermint and citronella for 5 to 10 minutes 2-3 times per day for several months. Sometimes things can improve. Given the long duration of her symptoms it is unlikely she will get any recovery but orthotropic jschreibstein Not available 06/08/2024 13:38:43 Reason for Referral None Reported. Problems Name Problem SNOMED Code Status Onset Date Resolution Date Notes Provider Name and Address Organization Details Recorded Time Posterior rhinorrhe a 32617059 Active 2022 Postnasal drip; Note: Date Diagnosed : 05/10/2022 9:35 AM (R09.82) Not [facility] Bilateral tinnitus 30054262766 02 Active 2017 Tinnitus, bilateral ; Note: Date Diagnosed : 02/19/2017 10:42 AM (H93.13) Not Available [facility] 4 02:36:59 Respirato ry finding 440409032 Active 2022 Feeling of foreign body in throat; Note: Date Diagnosed : 05/10/2022 9:35 AM (R09.89) Not Available [facility] 4 02:37:10 Cardiovas cular finding 829809413 Active 2022 Feeling of foreign body in throat; Note: Date Diagnosed : 05/10/2022 9:35 AM (R09.89) Not Available [facility] 4 02:37:10 Loss of sense of smell 38849990 Active 2016 Anosmia; Note: Date Diagnosed : 07/25/2016 11:08 AM (R43.0) Not Available [facility] 4 02:37:03 Impacted cerumen in right ear 44191723639 45726 Active 2017 Impacted cerumen, right ear; Note: Date Diagnosed : 05/26/2017 2:23 PM (H61.21) Not Available [facility] 4 02:37:06 Gastroeso phageal reflux disease without esophagit is 902361278 Active 2016 Gastro-es ophageal reflux disease without esophagit is; Note: Date Diagnosed : 06/05/2016 11:46 AM (K21.9) Not Available [facility] 4 02:37:01 Impacted cerumen in left ear 77895281646 47457 Active 2016 Impacted cerumen, left ear; Note: Date Diagnosed : 06/05/2016 11:41 AM (H61.22) Not Available [facility] 4 02:37:00 Sensorine ural hearing loss of bilateral ears 568065749 Active 2017 Sensorine ural hearing loss, bilateral ; Note: Date Diagnosed : 02/19/2017 11:28 AM (H90.3) Not Available [facility] 4 02:37:04 Nasal congestio n 36029395 Active 2017 Nasal congestio n; Note: Date Diagnosed : 02/19/2017 10:42 AM (R09.81) Not Available [facility] 4 02:37:06 Bilateral temporoma ndibular joint pain 14031714067 010231 Active 2017 Arthralgi a of bilateral temporoma ndibular joint; Note: Date Diagnosed : 05/26/2017 3:38 PM (M26.623) Not Available [facility] 4 02:37:08 Impacted cerumen of bilateral ears 10967270798 82901 Active 2018 Impacted cerumen, bilateral ; Note: Date Diagnosed : 07/29/2018 10:55 AM (H61.23) Not Available [facility] 4 02:37:00 Disorder of left Eustachia n tube 83272986674 69112 Active 2017 Other specified disorders of Eustachia n tube, left ear; Note: Date Diagnosed : 05/26/2017 3:38 PM (H69.82) Not Available [facility] 4 02:37:09 Malaise 010188052 Active 2020 Other malaise; Note: Date Diagnosed : 03/08/2020 4:39 PM (R53.81) Not Available [facility] 4 02:37:02 Chronic rhinitis 32286960 Active 2023 KB PATEL MD [address] [facility],[place] [address], [place], [phone] , [place] - [facility] 4 21:48:21 Feeling of lump in throat 692198052 Active 2023 KB PATEL MD [address] [facility],[place] [address], [place], [phone] , [place] - [facility] 4 21:48:27 Sensory disorder of smell and/or taste 49557739858 03 Active 2024 KB PATEL MD [address] [facility],[place] [address], [place], [phone] , [place] - [facility] 5 13:37:27 Deviated nasal septum 784822017 Active 2024 KB PATEL MD [address] [place],[facility] [address], [place], [phone] , [facility] - [facility] 5 13:37:31 Excessive cerumen in ear canal 107334576 Active 2024 KB PATEL MD [address] [place],[facility] [address], [place], [place], [phone] , [facility] - [facility] 13:37:43 Problem Notes None recorded. Medical Equipment None Reported. Allergies Allergen ID Allergen Name Allergen Category Reaction Reaction Severity Criticality Documentation Date Start Date Code Code System Note Provider Name and Address Organization Details Recorded Time [id number] Substance with morphinan structure and opioid receptor agonist mechanism of action (substanc e) medicatio n other Not available Not available 06/24/2023 84393 9000 SNOMED React ion: unkno wn, unspe cifie d;; Not Available [facility] 4 01:08:19 Medications Name Sig Start Date Stop Date Status Note LastModified by Organization Details LastModified Time amoxicill in 500 mg capsule TAKE 1 CAPSULE BY MOUTH THREE TIMES A DAY UNTIL GONE 06/08 completed Not Available Not Available Not Available fosinopri l 20 mg-hydroc hlorothia zide 12.5 mg tablet TAKE 1 TABLET BY MOUTH EVERY DAY 06/08 completed Not Available Not Available Not Available Miralax 17 gram/dose oral powder 05/10 completed Medicati on ID: [id number] B rand Name: Miralax Send Method: E-Prescr ibed Sub s Allowed: subs OK Medic ationGen ericName : Miralax Not Available Not Available Not Available paroxetin e 10 mg tablet active Medicati on ID: [id number] B rand Name: paroxeti ne HCl Send Method: E-Prescr ibed Sub s Allowed: subs OK Medic ationGen ericName : paroxeti ne HCl Not Available Not Available Not Available tizanidin e 4 mg tablet TAKE 1 TABLET BY MOUTH THREE TIMES A DAY FOR 14 DAYS 06/08 completed Not Available Not Available Not Available atenolol 25 mg tablet TAKE 1 TABLET BY MOUTH EVERY DAY active Not Available Not Available No t Available ciproflox acin 250 mg tablet TAKE 1 TABLET BY MOUTH 2 TIMES A DAY FOR 7 DAYS 06/08 completed Not Available Not Available Not Available levofloxa darwin 250 mg tablet TAKE 1 TABLET BY MOUTH THE DAY BEFORE FOR PROCEDUR E, DAY OF PROCEDUR E, AND DAY AFTER THE PROCEDUR E 06/08 completed Not Available Not Available Not Available amantadin e HCl 100 mg capsule active Medicati on ID: [id number] B rand Name: amantadi ne HCl Send Method: E-Prescr ibed Sub s Allowed: subs OK Medic ationGen ericName : amantadi ne HCl Not Available Not Available Not Available amoxicill in 500 mg tablet TAKE 4 TABLETS BY MOUTH 1 HOUR PRIOR TO DENTAL APPOINTM ENT 06/08 completed Not Available Not Available Not Available simvastat in 40 mg tablet 06/08 completed Medicati on ID: [id number] D uration Value: 90 Brand Name: simvasta tin Send Method: E-Prescr ibed Sub s Allowed: subs OK Medic ationGen ericName : simvasta tin Not Available Not Available Not Available hydrocort isone 2.5 % topical cream with perineal applicato r PLEASE SEE ATTACHED FOR DETAILED DIRECTIO NS 06/08 completed Not Available Not Available Not Available flaxseed oil 1,000 mg capsule 05/10 completed Medicati on ID: [id number] B rand Name: flaxseed oil Send Method: E-Prescr ibed Sub s Allowed: subs OK Medic ationGen ericName : flaxseed oil Not Available Not Available Not Available amoxicill in 875 mg tablet 02/19 completed Medicati on ID: [id number] D uration Value: 10 Reason: () Brand Name: amoxicil mana Send Method: E-Prescr ibed Sub s Allowed: subs OK Medic ationGen ericName : amoxicil mana Not Available Not Available Not Available meclizine 25 mg tablet TAKE 1 TABLET BY MOUTH THREE TIMES A DAY NEEDED FOR DIZZINES S 06/08 completed Not Available Not Available Not Available cyanocoba josie (vit B-12) 1,000 mcg/mL injection solution INJECT 1 ML INTRAMUS CULAR EVERY 30 DAYS 06/08 completed Not Available Not Available Not Available nitrofura ntoin macrocrys josé 100 mg capsule TAKE 1 CAPSULE BY MOUTH TWICE A DAY FOR 1 WEEK MUST GIVE WITH FOOD 06/08 completed Not Available Not Available Not Available ranitidin e 300 mg capsule 1 capsule by mouth 2016 active Medicati on ID: [id number] D uration Value: 60 Prescri bed By Name: Gustavo Dick nd Name: ranitidi ne HCl Send Method: E-Prescr ibed Sub s Allowed: subs OK Medic ationGen ericName : ranitidi ne HCl Not Available Not Available Not Available syringe (disposab le) 3 mL TO USE WITH B12 MONTHLY INJECTIO NS active Not Available Not Available No t Available Calcium-6 00 600 mg (as calcium carbonate 1,500 mg) tablet 06/08 completed Medicati on ID: [id number] B rand Name: Calcium 600 Send Method: E-Prescr ibed Sub s Allowed: subs OK Medic ationGen ericName : Calcium 600 Not Available Not Available Not Available omeprazol e 20 mg capsule,d elayed release TAKE 1 CAPSULE BY MOUTH TWICE A DAY 06/08 completed Not Available Not Available Not Available diclofena c sodium 75 mg tablet,de layed release TAKE 1 TABLET BY MOUTH TWICE A DAY active Not Available Not Available No t Available folic acid 1 mg tablet 05/10 completed Medicati on ID: [id number] D uration Value: 28 Brand Name: folic acid Sen d Method: E-Prescr ibed Sub s Allowed: subs OK Medic ationGen ericName : folic acid Not Available Not Available Not Available budesonid e DR - ER 3 mg capsule,d elayed,ex tended release TAKE 3 CAPSULES (9 MG TOTAL) BY MOUTH EVERY DAY IN THE MORNING active Not Available Not Available No t Available ibuprofen 600 mg tablet TAKE 1 BY MOUTH EVERY 6 HOURS NEEDED FOR PAIN 06/08 completed Not Available Not Available Not Available estradiol 0.01% (0.1 mg/gram) vaginal cream FOR 30 DAYS PEA-SIZE D TO URETHRA 2 TIMES A WEEK 06/08 completed Not Available Not Available Not Available carbidopa 25 mg-levodo pa 100 mg tablet TAKE 1 TABLET BY MOUTH 2 TIMES A DAY,X30 DAYS,INS TR:STOP AMANTADI NE 06/08 completed Not Available Not Available Not Available dicyclomi ne 10 mg capsule TAKE 1 CAPSULE BY MOUTH THREE TIMES A DAY active Not Available Not Available No t Available ipratropi um bromide 21 mcg (0.03 %) nasal spray 2 spray into both nostrils 03/08 completed Medicati on ID: [id number] P lidia d By Name: MITZI Lopez nd Name: Atrovent Send Method: E-Prescr ibed Sub s Allowed: subs OK Medic ationGen ericName : Atrovent Not Available Not Available Not Available oxycodone 5 mg tablet TAKE 1 TABLET BY MOUTH EVERY 4 HOURS NEEDED FOR PAIN 06/08 completed Not Available Not Available Not Available cholestyr amine (with sugar) 4 gram powder for susp in a packet 06/08 completed Medicati on ID: [id number] B rand Name: cholesty ramine (with sugar) S end Method: E-Prescr ibed Sub s Allowed: subs OK Medic ationGen ericName : cholesty ramine (with sugar) Not Available Not Available Not Available rosuvasta tin 20 mg tablet TAKE 1 TABLET BY MOUTH EVERY DAY active Not Available Not Available No t Available nitrofura ntoin monohydra te/macroc rystals 100 mg capsule TAKE 1 CAPSULE BY MOUTH TWICE A DAY FOR 1 WEEK MUST GIVE WITH A MEAL OR FOOD 06/08 completed Not Available Not Available Not Available solifenac in 10 mg tablet TAKE 1 TABLET BY MOUTH DAILY FOR 90 DAYS 06/08 completed Not Available Not Available Not Available BD Precision [place] 25 gauge x 1 needle TO USE MONTHLY FOR B12 INJECTIO NS active Not Available Not Available No t Available Flovent HFA 110 mcg/actua tion aerosol inhaler 2 puff 05/10 completed Medicati on ID: [id number] P dinariyuki d By Name: Negrita wilkins MD Brand Name: Flovent HFA Send Method: E-Prescr ibed Sub s Allowed: subs OK Medic ationGen ericName : Flovent HFA Not Available Not Available Not Available pregabali n 75 mg capsule TAKE 1 CAPSULE BY MOUTH TWICE A DAY active Not Available Not Available No t Available chlorhexi dine gluconate 0.12 % mouthwash SWISH WITH 1/2OZ FOR 30SEC AND SPIT TWICE A DAY FOR 2 WEEKS 06/08 completed Not Available Not Available Not Available Mehdi (PF) 12.5 mg/0.25 mL subcutane ous auto-inje ctor 05/10 completed Medicati on ID: [id number] B rand Name: Mehdi (PF) Sen d Method: E-Prescr ibed Sub s Allowed: subs OK Medic ationGen ericName : Lexxuvo (PF) Not Available Not Available Not Available Metamucil 0.4 gram capsule 05/10 completed Medicati on ID: [id number] B rand Name: Metamuci l Send Method: E-Prescr ibed Sub s Allowed: subs OK Medic ationGen ericName : Metamuci l Not Available Not Available Not Available Vitals Date Recorded Body weight Body mass index (BMI) Body height Provider Name and Address Organization Details Last Updated DateTime 06/08/2024 619376.09 g 41.6 kg/m2 165.1 cm Kelly Johnson [place] - [facility] 06/08/2024 13:19:16 Social History None recorded. Functional Status None recorded. Mental Status None recorded. Family History Nothing Reported. Medical History No medical history recorded. Gynecological HistoryNo gynecological history recorded. Obstetrics History GPAL:G 0 P 0 0 0 0 Past Encounters Encounter ID Performer Location Encounter Start Date Encounter Closed Date Diagnosis/Indication Diagnosis SNOMED-CT Code Diagnosis ICD10 Code Diagnosis Note [id number] KB PATEL MD [facility] [address] [phone] 06/08/2024 13:08:52 06/08/2024 13:41:31 Sensory disorder of smell and/or taste 2269317216 103 R43.9 Deviated nasal septum 12 3770564 J34.2 Excessive cerumen in ear canal 659782246 H61.23 Suggested 3 drops distilled vinegar in each ear twice weekly to prevent the buildup of cerumen Health Concerns Section Related Observation LastModified by Organization Detai ls LastModified Time None Recorded Concern Status LastModified by Organization Details LastModified Time None Recorded Advance Directives Directive None Recorded Payers Insurance Date Sequence Insurance Name Policy Number Policy Calabrese Covered Member ID Calabrese Member ID Guarantor Name 06/08/2024 1 MEDICARE B-[place]: [facility] [employer] Daly Barker [id number] Daly Barker 06/07/2024 2 BCBS-ID: [facility] [employer] [id number] Daly Barker [id number] Daly Barker Notes Date Note Type Note Provider Name and Address Organization Details Recorded Time 06/08/2024 text/html Patient notes many years of loss of sense of smell and then loss of sense of taste. This predates the pandemic by several years. Rare nasal congestion No nasal bleeding. She had a negative CT of her sinuses in February 2020 after all the symptoms were present. KB VILLAFANA MD [address] [place] [address], [phone], [facility] - [facility] 06/08/2024 13:39:07 OBGyn Episode No OBEpisode recorded.
[2024-06-16 09:13] LABS: Appearance Urine Turbid; Color Urine Yellow; Glucose Urine UA Negative (Negative); Leukocyte Esterase Urine Large (3+) (Negative); Nitrite Urine Negative (Negative); UMIC TRIGGER UA YES; Urine Blood Small (1+) (Negative); Urine Ketones Negative (Negative); Urine Protein 30 (1+) mg/dL (Neg-Trace)
[2024-06-16 09:17] LABS: Bacteria Urine 4+ (None Seen); WBC Urine >50 /HPF (0-5)
== END 2024-06-16 08:35 | disposition home or self-care (01) ==
LOC: HO.LAB 08:34
PROVIDERS: PCP Internal Medicine; Visit Provider Urology
DX: N39.0 Urinary tract infection, site not specified (principal)
CPT/HCPCS: 81001; 87086; 87088; 87186